=== PATIENT | female | born 1945 | race Caucasian/White ===

== ENCOUNTER → 2020-11-17 | Outpatient (CLI) | payer MEDICARE | LOC: CT 07:33 | DX: R10.9 Unspecified abdominal pain (principal); R10.813 Right lower quadrant abdominal tenderness; R91.1 Solitary pulmonary nodule | CPT/HCPCS: 36415; 82565; Q9967 ==

== ENCOUNTER → 2021-12-11 | Outpatient (CLI) | payer MEDICARE ==
[~2021-12-11] VITALS: Ht 147.3 cm; Wt 59.4 kg
== END ==
LOC: OPSV 14:00
DX: M81.0 Age-related osteoporosis without current pathological fracture (principal)
CPT/HCPCS: 96365; J3489

== ENCOUNTER → 2022-02-05 | Outpatient (CLI) | payer MEDICARE ==
[2022-02-05 16:05] LABS: BUN/CREATININE RATIO 20 (0-10)
== END ==
LOC: CT 01-31 13:30 → MAMO 14:00 → CT 15:00
PROVIDERS: Internal Medicine
DX: Z12.31 Encounter for screening mammogram for malignant neoplasm of breast (principal); E78.5 Hyperlipidemia, unspecified; I10 Essential (primary) hypertension; R91.1 Solitary pulmonary nodule; Z78.0 Asymptomatic menopausal state; Z98.82 Breast implant status
CPT/HCPCS: 36415; 71260; 77063; 77067; 80048; Q9967